=== PATIENT | female | born 1965 | race Caucasian/White ===

== ENCOUNTER 2017-01-01 06:49 | Day surgery (SDC) | payer BC, OTHER ==
[~2017-01-01 06:49] MED LIST: Lactated Ringers 1,000 ML IV SCH; Sodium Chloride 0.9% 10 ML Syringe FLUSH PRN
[2017-01-01] MEDS ORDERED: Propofol 200 MG/20 ML SDV IV ONE (08:00)
--- NOTE | 2017-01-01 08:34 | PCM.OPNOTE ---
- General Post-Op/Procedure Note Date of Surgery/Procedure: 01/01/17 Operative Procedure(s): c scope Findings: normal colon Pre Op Diagnosis: colon cancer screening Post-Op Diagnosis: normal scope Anesthesia Technique: MAC Primary Surgeon: Javon Xavier Anesthesia Provider: Jasper Price Pathology: none Complications: None Condition: Good Free Text/Narrative:: see dictation
--- NOTE | 2017-01-01 08:44 | OR ---
DATE OF OPERATION: 01/01/2017 SURGEON: Javon Xavier MD PROCEDURE PERFORMED: Colonoscopy. PREOPERATIVE DIAGNOSIS: Need for colon cancer screening. POSTOPERATIVE DIAGNOSIS: Normal scope. INDICATIONS FOR PROCEDURE: This is a 51-year-old white female, who is referred for a screening colonoscopy. She was offered and accepted same. DESCRIPTION OF OPERATION: After an excellent IV sedation was administered, digital rectal exam was performed. No marked abnormality was noted. The flexible colonoscope was inserted and advanced without difficulty to the cecum. The prep was excellent. The following findings were noted. Ascending colon, unremarkable. Transverse colon, unremarkable. Descending colon, unremarkable. Sigmoid and rectum unremarkable. The colon was deflated, as the scope was removed. The patient tolerated the procedure well and was taken to recovery room in good condition. Repeat scope in 10 years. /[id number] /MODL
[2017-01-01 10:19] VITALS: BP 116/76
== END 2017-01-01 09:36 | disposition home or self-care (01) ==
LOC: FB.SDS 06:49
PROVIDERS: ATTEND Surgery
DX: Z12.11 Encounter for screening for malignant neoplasm of colon (principal); Z91.040 Latex allergy status; Z91.09 Other allergy status, other than to drugs and biological substances; Z79.899 Other long term (current) drug therapy; E66.9 Obesity, unspecified; Z68.30 Body mass index [BMI] 30.0-30.9, adult; Z90.49 Acquired absence of other specified parts of digestive tract; Z98.890 Other specified postprocedural states
CPT/HCPCS: 45378; 81025; J2704; J7120